=== PATIENT | female | born 1960 | race Caucasian/White ===

== ENCOUNTER → 2016-06-29 | Outpatient (CLI) | payer MEDICARE, OTHER ==
[~2016-06-29] MED LIST: BIOTIN1 MG PO; DAILY MULTIPLE1 EAC1 PO; DESYREL-DPS50 MG PO; FIBER CHOICE C1.5 GM PO; PERCOCET 7.5 DP1 TAB PO; PRILOSEC DPS20 MG PO; PROBIOTIC1 EAC1 PO; VALIUM-DPS10 MG PO; VITAMIN D310000 UNI1 PO
== END | disposition home or self-care (01) ==
LOC: PTH.S 09:50
DX: Z01.818 Encounter for other preprocedural examination (principal)

== ENCOUNTER 2016-07-05 09:47 | Inpatient (IN) | payer MEDICARE, OTHER ==
[~2016-07-05] VITALS: Ht 162.6 cm; Wt 96.5 kg
--- NOTE | ~2016-07-05 | DS ---
ADMIT: 07/05/2016 RM/LOC: 509 [facility] MR#: [id number] [facility]#: [id number] [address] [id number] URSULA HAINES [address] [facility] [address] [place] [address] General Discharge Summary SEX: F AGE: 55 : 1960 ADMISSION DATE: 07/05/2016 DISCHARGE DATE: 07/07/2016 SERVICE: Neurosurgery. REASON FOR ADMISSION: 1. Spinal cord compression with myelopathy. 2. Cervical stenosis. 3. Numbness. 4. Weakness. PROCEDURES: Anterior cervical diskectomy and fusion at cervical 5 through 7. HOSPITAL COURSE: Ms. Haines tolerated her procedure well. Postoperatively, she was taken to the Med/Surg floor for monitoring and care. Postop day #1, she was awake and alert. She was oriented x4. She was moving all extremities x4 with 5/5 strength. She was working with Occupational Therapy and Physical Therapy and was tolerating this quite well. Postop day #2, she was awake and alert. She was afebrile, her vital signs were stable. She was moving all extremities x4 with 5/5 strength. Her incision was clean, dry, and intact. Her STEF drain had decreased output; therefore, was discontinued without difficulty. She was ambulating, urinating, and defecating per her norm and was requesting discharge home. DISCHARGE CONDITION: Good. DISCHARGE MEDICATIONS: 1. Percocet 5/325, one to two p.o. q.4 hours p.r.n. 2. Valium 5 mg one to two tablets p.o. q.8 hours p.r.n. 3. Trazodone 25 mg at bedtime. 4. Multivitamin daily. 5. Fiber chewables daily. 6. Omeprazole 20 mg b.i.d. p.r.n. 7. Vitamin D3 10,000 units daily. 8. Probiotic daily. 9. Biotin daily. ADMIT: 07/05/2016 RM/LOC: 509 [facility] MR#: [id number] [address] [address] URSULA HAINES [address] [address] General Discharge Summary SEX: F AGE: 55 : 1960 DISCHARGE INSTRUCTIONS: Per Dr. Cheng: She can have a regular diet. She may shower, she should not take any tub baths, she should pat her incision dry. She should not take any NSAIDs. She should not drive until she is seen in clinic. She will call with any questions or concerns including neurological worsening, signs or symptoms of infection, or any other issues. FOLLOWUP: She will follow up in clinic in 2 weeks. DISPOSITION: She was discharged home. Total [id number] time for the discharge planning and care coordination was 30 minutes. Jessica Acosta APRN / Rubin Cheng MD / enrico JOB #: [id number] CC: Rubin Cheng MD, Attending Physician Mahogany Espinosa NP, Family Physician
[2016-07-08] MEDS ORDERED: DESYREL-DPS50 MG PO (08:50)
[2016-07-08] MEDS ORDERED: PRILOSEC DPS20 MG PO (08:52)
[2016-07-08] MEDS ORDERED: FIBER CHOICE C1.5 GM PO (08:52)
[2016-07-08] MEDS ORDERED: DAILY MULTIPLE1 EAC1 PO (08:52)
[2016-07-08] MEDS ORDERED: BIOTIN1 MG PO (08:53)
[2016-07-08] MEDS ORDERED: VITAMIN D310000 UNI1 PO (08:53)
[2016-07-08] MEDS ORDERED: PROBIOTIC1 EAC1 PO (08:53)
[2016-07-08] MEDS ORDERED: PERCOCET 7.5 DP1 TAB PO (08:54)
[2016-07-08] MEDS ORDERED: VALIUM-DPS10 MG PO (08:54)
--- NOTE | 2016-07-09 10:16 | OR ---
ADMIT: 07/05/2016 RM/LOC: 509 [facility] MR#: [id number] [address] [address] URSULA HAINES 1760 [facility] [address] [place] [address] Operative/Delivery Room Report SEX: F AGE: 55 : 1960 SURGERY DATE: 07/05/2016 SURGEON: Rubin Cheng MD PREOPERATIVE DIAGNOSIS: Herniated nucleus pulposus with radiculopathy and myelopathy from right-sided compression from cervical 5-6 and 6-7 with hand weakness. POSTOPERATIVE DIAGNOSIS: Herniated nucleus pulposus with radiculopathy and myelopathy from right-sided compression from cervical 5-6 and 6-7 with hand weakness. PRODUCTION EXPERT: None. PROCEDURE: 1. Wide anterior diskectomy, cervical 5-6 and 6-7, with decompression of thecal sac and neural foramen with resection of a portion of the posterior uncus where necessary for decompression of the neural foramen. 2. Anterior arthrodesis with structural tricortical interbody graft, cervical 5-6 and 6-7. 3. Anterior instrumentation with De[employer] Synthes instruments, cervical 5-6, and 6-7. 4. Placement of Jackson-Wells tongs with removal at the end of the case with 10 pounds of traction utilized prior to instrumentation. 5. Intraoperative fluoroscopy with physician interpretation of film. DESCRIPTION OF PROCEDURE: After gaining informed consent, the patient was taken to the operative theater, placed under general endotracheal anesthesia in supine position. A time-out was utilized to ascertain the correct site and side of surgery as well as other pertinent patient historical information. Counts were obtained at the beginning and the end of the case with no change betwixt the two. Antibiotics were given within 1 hour of incision. Fluoroscope was brought into the field. An anterior neck incision was fashioned. This was then taken down through the paratracheal and paraesophageal groove to the anterior spinal column. Two areas of osteophytic uprising were noted. Needle was placed and this appeared to be the 5-6 level. The Air [employer] Specialist retractors were then placed after taking up from medial to lateral longus colli to be able to place the Air Pollution Specialist retractor system. Once this was completed, attention was turned to diskectomy. Various curettes, rongeurs, and a high-speed drill was used to resect the cartilaginous endplates and disks all the way back to the posterior longitudinal ligament resecting this widely and then resecting out into the neural foramen being able to sound into that area at 5-6 and 6-7. Cervical 6- 7 had very large herniated fragments with further sounding. Utilizing the nerve hook, I was able to obtain a couple of extra fragments from cephalad to the 6-7 level. There was no further sign of compression after releasing the posterior longitudinal ligament. At this point, pristine hemostasis was ADMIT: 07/05/2016 RM/LOC: 509 [facility] MR#: [id number] [address] [place] [id number] URSULA HAINES [address] [place] [address] Operative/Delivery Room Report SEX: F AGE: 55 : 1960 obtained and attention was turned to instrumentation. 7 mm tricortical structural allograft spacers were then very cautiously tapped into the cervical 5-6 and 6-7 levels. Once this was completed, attention was turned to the anterior plating. The anterior spinal column was decorticated at the screw sites, and then 12 mm vancomycin powder coated screws were implanted into the cervical vertebral bodies through the plate torquing the plate cam locks to appropriate setting. Pristine hemostasis was obtained. A STEF drain was day-lighted out. The wound was closed with simple, inverted, and interrupted 2-0 Vicryl with subcuticular 3-0 Stratafix on the skin and drain sewn in place. COMPLICATIONS: None. ESTIMATED BLOOD LOSS: Charted. SPECIMEN: Disks. CONDITION: Extubated and taken to postanesthesia care unit. Rubin Cheng MD/ enrico JOB #: [id number] CC: Rubin Cheng, Attending Physician Mahogany Espinosa, Family Physician
== END 2016-07-07 11:20 | disposition home or self-care (01) | DRG 472 ==
LOC: 5MS 10:16 → WOR 10:16 → 5MS 20:27
PROVIDERS: ADMIT Neurological Surgery
DX: M50.122 Cervical disc disorder at C5-C6 level with radiculopathy (principal); M50.023 Cervical disc disorder at C6-C7 level with myelopathy; E55.9 Vitamin D deficiency, unspecified; F41.9 Anxiety disorder, unspecified; F32.9 Major depressive disorder, single episode, unspecified; K21.9 Gastro-esophageal reflux disease without esophagitis; E66.9 Obesity, unspecified; Z68.36 Body mass index [BMI] 36.0-36.9, adult; M79.7 Fibromyalgia; M81.0 Age-related osteoporosis without current pathological fracture; F17.200 Nicotine dependence, unspecified, uncomplicated; Z85.41 Personal history of malignant neoplasm of cervix uteri